=== PATIENT | male | born 1995 | race Caucasian/White ===

== ENCOUNTER 2019-07-07 14:08 | Emergency (ER) | payer OTHER ==
[~2019-07-07] VITALS: Ht 167.6 cm; Wt 96.8 kg
[2019-07-07] MEDS ORDERED: lexapro (15:00)
--- NOTE | 2019-07-07 15:03 | REP ---
Head CT without contrast: History: Trauma. Loss of consciousness. Comparison study: No comparison study. CT findings: Bone window settings demonstrate an intact bony calvarium. There is no evidence of skull fracture or incidental bony calvarial lesion. The visualized paranasal sinuses appear clear. No intraorbital abnormality is seen. On soft tissue window setting images; the lateral, third, and fourth ventricles are normal in size and position. Kenyon-white differentiation pattern is normal above and below the tentorium. There are is no evidence of intracranial hemorrhage. No mass, edema, infarction, or midline shift is seen. No extra-axial fluid collection is appreciated. Impression: Negative noncontrast head CT. Electronically Signed by Daryn Osorio MD 07/07/2019 02:55 P
--- NOTE | 2019-07-07 15:04 | REP ---
CT study of the cervical spine without contrast: History: Trauma. Technique: Helical scanning is acquired and overlapping 2 mm high resolution axial images were generated and reviewed at bone and soft tissue window settings. Coronal and sagittal multiplanar re-formations images are generated. CT findings: There is no evidence of cervical spine element fracture. No skull base fracture is seen. Cervical vertebral body heights are preserved. Alignment is normal. Facet joints are normally aligned bilaterally at each cervical level on multiplanar re-formations images. There is no evidence of intraspinal or paraspinal hematoma. No extra vertebral abnormality is seen. Impression: Negative CT study of the cervical spine without contrast. No fracture seen. Electronically Signed by Daryn Osorio MD 07/07/2019 02:56 P
[2019-07-07] MEDS ORDERED: ACETAMINOPHEN TAB 650MG DOSE (2X325MG) PO ONE (17:15)
[2019-07-07 17:23] LABS: BASO % 0.4 % (0.0-1.0); EOS # 0.1 10^3/uL (0.0-0.5); EOS % 0.8 % (0.0-3.0); HEMATOCRIT 48.9 % (42.0-52.0); HEMOGLOBIN 16.5 g/dl (13.5-17.5); LYMPH # 3.1 10^3/uL (1.5-5.0); LYMPH % 40.8 % (24.0-44.0); MEAN CORPUSCULAR HEMOGLOBIN 27.9 pg (27.0-33.0); MEAN CORPUSCULAR HGB CONC 33.7 g/dl (32.0-36.5); MEAN CORPUSCULAR VOLUME 82.6 fl (80.0-96.0); MONO # 0.5 10^3/uL (0.0-0.8); MONO % 6.3 % (0.0-5.0); NEUTROPHILS # 3.9 10^3/uL (1.5-8.5); NEUTROPHILS % 51.6 % (36.0-66.0); PLATELET COUNT, AUTOMATED 263 10^3/uL (150-450); RED BLOOD COUNT 5.92 10^6/uL (4.30-6.10); WHITE BLOOD COUNT 7.6 10^3/uL (4.0-10.0)
[2019-07-07] MEDS ORDERED: NS 1,000 ML IV ONE (17:30)
--- NOTE | 2019-07-07 17:39 | REP ---
Portable chest x-ray: Single view. History: Syncope. No comparison study. Findings: The lungs are symmetrically aerated and clear. Heart is not enlarged. EKG electrodes are seen. Pulmonary vasculature is not increased. Impression: No acute disease. Electronically Signed by Daryn Osorio MD 07/07/2019 05:30 P
[2019-07-07 17:52] LABS: BLOOD UREA NITROGEN 16 MG/DL (7-18); CALCIUM LEVEL 9.4 MG/DL (8.5-10.1); CARBON DIOXIDE LEVEL 29 MEQ/L (21-32); CHLORIDE LEVEL 104 MEQ/L (98-107); FREE T4 1.11 NG/DL (0.76-1.46); GLOMERULAR FILTRATION RATE > 60.0 (>60); GLUCOSE, FASTING 91 MG/DL (70-100); MAGNESIUM LEVEL 2.1 MG/DL (1.8-2.4); POTASSIUM SERUM 4.3 MEQ/L (3.5-5.1); SODIUM LEVEL 140 MEQ/L (136-145)
[2019-07-07 19:00] VITALS: BP 142/72
--- NOTE | 2019-07-08 08:03 | ECGEPIP ---
[facility] - ED Test Date: 2019-07-07 Pat Name: HARI CABRERA Department: Room: - Gender: Male [employer]: ANMOL : 1995 Requested By: FILIBERTO Koo Order Number: [id number] Reading MD: Melissa Calix Measurements Intervals [place] Rate: 60 P: 29 LA: 196 QRS: -62 QRSD: 98 T: 36 QT: 383 QTc: 383 Interpretive Statements SINUS RHYTHM MARKED LEFT AXIS DEVIATION PATTERN CONSISTENT WITH PULMONARY DISEASE POSSIBLE OLD INFERIOR INFARCT NO PRIOR Electronically Signed on 07-08-2019 8:03:29 EST by Melissa Calix
== END 2019-07-07 19:41 | disposition home or self-care (01) ==
LOC: M ED 14:08
DX: S06.0X1A Concussion with loss of consciousness of 30 minutes or less, initial encounter (principal); S01.01XA Laceration without foreign body of scalp, initial encounter; W22.09XA Striking against other stationary object, initial encounter; Y99.1 Military activity; R94.31 Abnormal electrocardiogram [ECG] [EKG]; Z79.899 Other long term (current) drug therapy

== ENCOUNTER → 2019-12-08 | Outpatient (CLI) | payer OTHER ==
[~2019-12-08] MED LIST: ESCI20TA; HYDR-4570; ZOFR4TAB16 PO; ZONI100C17; lexapro
--- NOTE | 2019-12-15 14:09 | SLEEPCENT ---
DATE OF PROCEDURE: 12/08/2019 Nocturnal polysomnography and Ricki gonzalez were [id number] ordered by Dr. Abdullahi, 89 degrees of data study 12/08/2019 INDICATION Follows nocturnal polysomnography was performed for evaluation of sleep physiology in this patient with a history of snoring and difficulty with sleep continuity. 7057 minutes of data were reviewed. 39.5 minutes of sleep identified. Sleep latency was normal at 20 minutes. REM sleep was delayed 200-323 minutes of sleep architecture showed poor progression with fragmentation and periods of wake was only one REM cycles noted late in the study. Overall sleep efficiency was 72.2%. The electrocardiogram showed sinus rhythm with an average heart rate of 48 beats per minute. Rate ranged 40-80 feet. EEG showed reasonably normal waveforms for awake and sleep was some coarsening in background consistent with medication effect. No focal events were identified during the study. There were 176 respiratory events identified of 10 seconds in duration or greater for an apnea-hypopnea index of 31 events were primarily obstructive not exclusive to stage nor body posture. Arousals from respiratory events occurred 4.1 times per hour and oxygen saturations remained in the 90s. There was some activity noted in the limb leads III of four trains of 30 events but limb movement arousal index was only 5.80. Snoring was noted over the course of the study and other measures of sleep physiology were normal. IMPRESSION Obstruction are severe obstructive sleep apnea syndrome (G4 7.33). Apnea-hypopnea index 31.1. RECOMMENDATIONS The patient should be encouraged to return to sleep disorder center for pressure therapy in the interim alcohol and sedative avoidance should be practiced and caution exercised during operation of motor vehicles.
== END ==
LOC: M SLEEP 20:00
PROVIDERS: ATTEND Internal Medicine Pulmonary Disease
DX: G47.33 Obstructive sleep apnea (adult) (pediatric) (principal); G47.59 Other parasomnia

== ENCOUNTER 2019-12-31 11:00 | Emergency (ER) | payer OTHER ==
[~2019-12-31] VITALS: Ht 167.6 cm; Wt 107.8 kg
[2019-12-31 11:00] VITALS: BP 153/94
[~2019-12-31 11:00] MED LIST changes: -ESCI20TA; -HYDR-4570; -ZOFR4TAB16 PO; -ZONI100C17
[2019-12-31] MEDS ORDERED: HYDR-4570 (11:15)
[2019-12-31] MEDS ORDERED: ESCI20TA (11:15)
[2019-12-31] MEDS ORDERED: ZONI100C17 (11:15)
[2019-12-31 11:37] LABS: BASO % 0.7 % (0.0-1.0); EOS # 0.1 10^3/uL (0.0-0.5); EOS % 2.3 % (0.0-3.0); HEMATOCRIT 44.5 % (42.0-52.0); HEMOGLOBIN 15.3 g/dl (13.5-17.5); LYMPH # 2.4 10^3/uL (1.5-5.0); LYMPH % 42.2 % (24.0-44.0); MEAN CORPUSCULAR HGB CONC 34.4 g/dl (32.0-36.5); MEAN CORPUSCULAR VOLUME 81.4 fl (80.0-96.0); MONO # 0.4 10^3/uL (0.0-0.8); MONO % 7.3 % (0.0-5.0); NEUTROPHILS # 2.7 10^3/uL (1.5-8.5); NEUTROPHILS % 47.3 % (36.0-66.0); PLATELET COUNT, AUTOMATED 259 10^3/uL (150-450); RED BLOOD COUNT 5.47 10^6/uL (4.30-6.10); WHITE BLOOD COUNT 5.7 10^3/uL (4.0-10.0)
[2019-12-31] MEDS ORDERED: NS 1,000 ML IV ONE (11:45)
[2019-12-31] MEDS ORDERED: ONDANSETRON 4MG/2ML VIAL IV ONE (11:45)
[2019-12-31] MEDS ORDERED: FAMOTIDINE IV BAG 20 MG in IV 1 EA IV ONE (11:45)
--- NOTE | 2019-12-31 12:01 | REP ---
Clinical: Lower quadrant pain. Technique: Axial noncontrast images from the lung bases to the pubic symphysis with coronal and sagittal re-formations. Findings: Liver, spleen, pancreas, gallbladder, bilateral adrenal glands and kidneys are normal. The enteric system is without obstruction or acute inflammatory process. Normal terminal ileum and appendix identified in the right lower quadrant. Pelvis demonstrates partially collapsed normal bladder and age appropriate prostate/seminal vesicles. No ascites. No free air. No adenopathy. Abdominal aorta without aneurysm. Musculoskeletal structures intact. Lung bases are clear. Impression: Normal noncontrast CT of the abdomen and pelvis. Electronically Signed by Efren Charles MD 12/31/2019 11:53 A
[2019-12-31 12:04] LABS: ALT/SGPT 52 U/L (12-78); BILIRUBIN,DIRECT 0.2 MG/DL (0.0-0.2); BILIRUBIN,TOTAL 0.6 MG/DL (0.2-1.0); BLOOD UREA NITROGEN 16 MG/DL (7-18); CALCIUM LEVEL 9.1 MG/DL (8.5-10.1); CARBON DIOXIDE LEVEL 25 MEQ/L (21-32); CHLORIDE LEVEL 110 MEQ/L (98-107); GLOMERULAR FILTRATION RATE > 60.0 (>60); GLUCOSE, FASTING 106 MG/DL (70-100); LIPASE 92 U/L (73-393); SODIUM LEVEL 140 MEQ/L (136-145); TOTAL PROTEIN 7.5 GM/DL (6.4-8.2)
[2019-12-31] MEDS ORDERED: ZOFR4TAB16 PO (12:13)
== END 2019-12-31 12:35 | disposition home or self-care (01) ==
LOC: M ED 11:00
DX: K52.9 Noninfective gastroenteritis and colitis, unspecified (principal); Z79.899 Other long term (current) drug therapy
CPT/HCPCS: 36415; 74176; 80048; 80076; 81001; 83690; 85025; 96365; 96375; 99284; J2405

== ENCOUNTER → 2020-02-06 | Outpatient (CLI) | payer OTHER ==
[~2020-02-06] MED LIST changes: +ESCI20TA; +HYDR-4570; +ZOFR4TAB16 PO; +ZONI100C17
--- NOTE | 2020-03-14 07:02 | SLEEPCENT ---
DATE: 02/06/2020 ORDERED BY: Dr. Abdullahi Nocturnal polysomnography was performed for the titration of pressure therapy in this patient with severe obstructive sleep apnea syndrome, apnea-hypopnea index 31.1. For testing, a ResMed F20 AirFit full-face mask of medium size was used, 4 cm of water pressure were applied to the circuit, and the lights were extinguished. There was 8 hours and 2 minutes of data reviewed. There were 431 minutes of sleep identified. Sleep latency was mildly prolonged at 29.5 minutes. REM latency was normal at 99 minutes. Sleep architecture was good with 3 REM cycles. Overall sleep efficiency was 90.9%. The electrocardiogram showed a sinus rhythm with an average heart rate of 50 beats per minute. EEG showed reasonably normal waveforms for wake and sleep. Respiratory events were palliated with CPAP at a pressures in excess of 8 with some central events emerged early in the study. Best sleep was seen on a CPAP pressure of 12 while there were some central apneas identified and no significant oxygen desaturations were seen surrounding these apneas. Remaining measures of sleep physiology were normal. IMPRESSION: Obstructive sleep apnea syndrome (G47.33). RECOMMENDATIONS: Nightly use of pressure therapy 12 cm of water. MTDD
== END ==
LOC: M SLEEP 20:00
PROVIDERS: ATTEND Internal Medicine Pulmonary Disease
DX: G47.33 Obstructive sleep apnea (adult) (pediatric) (principal)